=== PATIENT | female | born 1995 | race Caucasian/White ===

== ENCOUNTER → 2016-12-14 | Outpatient (CLI) | payer BC ==
--- NOTE | 2016-12-14 15:39 | DIAGNOSTIC IMAGING REPORT ---
RIGHT KNEE 4 OR MORE CLINICAL HISTORY: Right knee pain following twisting injury. COMPARISON: None FINDINGS: Alignment of the right knee is anatomic. There is no acute fracture. There is a small joint effusion. IMPRESSION: 1. No acute fracture. 2. Small right knee joint effusion. Electronically signed by: Amadou Tanner M.D. 12/14/2016 3:37 PM Dictated Date/Time: 12/14/2016 3:36 PM
== END | disposition home or self-care (01) ==
LOC: C.RDSM 09:30
PROVIDERS: ATTEND Internal Medicine
DX: S89.91XA Unspecified injury of right lower leg, initial encounter (principal); M25.461 Effusion, right knee; X58.XXXA Exposure to other specified factors, initial encounter

== ENCOUNTER → 2016-12-18 | Outpatient (CLI) | payer BC ==
--- NOTE | 2016-12-18 14:52 | DIAGNOSTIC IMAGING REPORT ---
MRI THE RIGHT KNEE NO CONTRAST CLINICAL HISTORY: Right knee pain status post trauma COMPARISON STUDY: Conventional radiographic study dated 12/14/2016 FINDINGS: Imaging was performed the sagittal, coronal, and axial planes. There are bone bruises involving the posterior aspects of both the medial and lateral tibial plateaus, there is also a bone bruise involving the lateral femoral condyle. The quadriceps and patellar tendons appear intact. The posterior cruciate ligament appears normal. There is a tear of the anterior crucial ligament There is mild edema surrounding the medial collateral ligament consistent with a grade 1 sprain. The patellar retinacular structures appear intact. No meniscal tears are visualized. IMPRESSION: 1. Tear of the anterior cruciate ligament 2. No evidence of posterior crucial ligament disruption. No evidence of collateral ligament disruption 3. Small joint effusion 4. No evidence of meniscal tear 5. Bone bruises involving the posterior aspects of both the medial and lateral tibial plateaus, as well as involving the lateral femoral condyle Electronically signed by: Modesto Carlson M.D. 12/18/2016 2:51 PM Dictated Date/Time: 12/18/2016 2:46 PM
== END | disposition home or self-care (01) ==
LOC: C.MRI 13:52
PROVIDERS: ATTEND Internal Medicine
DX: S89.91XA Unspecified injury of right lower leg, initial encounter (principal); X58.XXXA Exposure to other specified factors, initial encounter